=== PATIENT | female | born 1995 | race Caucasian/White ===

== ENCOUNTER 2021-09-23 20:00 | Emergency (ER) | payer OTHER ==
[~2021-09-23] VITALS: Ht 157.5 cm; Wt 52.3 kg
[2021-09-23 20:06] VITALS: BP 105/53
[2021-09-23] MEDS ORDERED: ibuprofen tablet 400 MG TABLET PO ONE (22:30)
== END 2021-09-23 23:24 | disposition home or self-care (01) ==
LOC: ER 20:00
DX: S00.83XA Contusion of other part of head, initial encounter (principal); R68.84 Jaw pain; R07.81 Pleurodynia; X58.XXXA Exposure to other specified factors, initial encounter; Y93.89 Activity, other specified; Y92.89 Other specified places as the place of occurrence of the external cause; Y99.8 Other external cause status
CPT/HCPCS: 70486; 99284